=== PATIENT | female | born 1960 | race Caucasian/White ===

== ENCOUNTER → 2020-07-09 | Outpatient (CLI) | payer OTHER | END | disposition home or self-care (01) | LOC: RAD 08:39 | DX: M25.522 Pain in left elbow (principal) ==

== ENCOUNTER 2025-02-24 09:30 | Outpatient (CLI) | payer OTHER | END 2025-02-24 09:42 | disposition home or self-care (01) | LOC: MAMO-SONO 09:30 | DX: N64.4 Mastodynia (principal); Z12.31 Encounter for screening mammogram for malignant neoplasm of breast ==